=== PATIENT | male | born 1960 | race Caucasian/White ===

== ENCOUNTER 2019-12-28 10:08 | Emergency (ER) | payer BC ==
[~2019-12-28] VITALS: Ht 175.3 cm; Wt 84.1 kg
[2019-12-28 11:14] LABS: CLARITY,URINE CLEAR (Clear); COLOR,URINE YELLOW (Yellow); GLUCOSE, URINE NEGATIVE (Neg); KETONES,URINE NEGATIVE (Neg); LEUKOCYTE ESTERASE ,URINE NEGATIVE (Neg); NITRITES, URINE NEGATIVE (Neg); OCCULT BLOOD,URINE NEGATIVE (Neg); PH,URINE 5.5 (4.8-8.0); PROTEIN,URINE NEGATIVE (Neg); UROBILINOGEN,URINE 0.2 E.U/dL (0.2-1.0)
[2019-12-28 11:19] LABS: UA COLLECTION TYPE CLN CATCH MIDSTREAM
[2019-12-28 11:37] VITALS: BP 128/82
--- NOTE | 2019-12-28 11:38 | NUR ---
dr. jaeger at bedside.
--- NOTE | 2019-12-28 11:44 | NUR ---
[id number] ML OUT FROM FC.
[2019-12-28] MEDS ORDERED: FLO0.4C PO (12:09)
== END 2019-12-28 11:57 | disposition home or self-care (01) ==
LOC: ER 10:08
DX: R33.9 Retention of urine, unspecified (principal); M54.5 Low back pain
CPT/HCPCS: 51702; 81003; 99284